=== PATIENT | female | born 1955 | race Caucasian/White ===

== ENCOUNTER 2021-11-10 07:19 | Day surgery (SDC) | payer MEDICARE ==
[~2021-11-10 07:19] MED LIST: LACTATED RINGERS 1,000 ML IV SCH; LIDOCAINE 1% (10MG/ML) FOR IV START INTRADERMA PRN; ONDANSETRON 4 MG/2 ML VIAL IVP PRN
[2021-11-10 07:48] LABS: Glucose,Whole Blood 106 mg/dL (70-110)
[2021-11-10 07:49] VITALS: RESP 16; TEMP 97.9
[2021-11-10] MEDS ORDERED: PROPOFOL 10 MG/ML 20 ML VIAL IV ONE (08:26)
--- NOTE | 2021-11-10 08:51 | P.PCN ---
Date of Procedure: 11/10/21 Procedure(s) Performed: BRIEF HISTORY: Patient is a 66-year-old pleasant male scheduled for an elective colonoscopy as a part of evaluation of Hemoccult-positive stool. PROCEDURE PERFORMED: Colonoscopy. With snare polypectomy PREOPERATIVE DIAGNOSIS: Hemoccult-positive stool IV sedation per Anesthesia. PROCEDURE: After informed consent was obtained, the patient, was brought into the endoscopy unit. IV sedation was administered by Anesthesia under continuous monitoring. Digital rectal examination was normal. Initially the Olympus CF-160 flexible video colonoscope was then inserted in the rectum, gradually advanced into the cecum without any difficulty. Careful examination was performed as the scope was gradually being withdrawn. Ileocecal valve and the appendiceal orifice were visualized and appeared normal. Prep was poor and several areas of the colon. In the base of the cecum by the appendiceal orifice there was a 5 limited polyp that was removed by snare polypectomy. Rest of the mucosa of the cecum, ascending colon, appeared normal. In the hepatic flexure there was a 7 mm polyp removed by snare polypectomy. Rest of the transverse colon, descending colon, sigmoid colon, and rectum appeared normal. Retroflexion was performed in the rectum and no lesions were seen. The patient tolerated the procedure well. IMPRESSION: 5 mm cecal polyp status post polypectomy 7 mm hepatic flexure polyp status post polypectomy RECOMMENDATIONS: Findings of this examination were discussed with the patient is a family. She was advised to follow with the biopsy results. If the biopsy is adenoma she can have a repeat colonoscopy in 5 years.
[2021-11-10 09:33] VITALS: BP 152/68; PULSE 78
== END 2021-11-10 09:31 | disposition home or self-care (01) ==
LOC: ORWHC2ENDO 07:19
PROVIDERS: ATTEND Internal Medicine Gastroenterology
DX: D12.3 Benign neoplasm of transverse colon (principal); J44.9 Chronic obstructive pulmonary disease, unspecified; G89.29 Other chronic pain
CPT/HCPCS: 45385; 88305; 88342; 88341; J2704

== ENCOUNTER → 2022-01-12 | Outpatient (CLI) | payer MEDICARE, OTHER ==
--- NOTE | 2022-01-12 14:38 | US ---
EXAMINATION TYPE: US thyroid st tissue head/neck DATE OF EXAM: 01/12/2022 COMPARISON: NONE CLINICAL HISTORY: E04.1 THYROID NODULE. Hypothyroid GLAND SIZE: Right Lobe: 5.3 x 1.1 x 1.9 cm Overall Parenchyma: homogenous Left Lobe: 5.5 x 1.5 x 1.8 cm Overall Parenchyma: homogeneous Isthmus Thickness: 0.3 cm NODULES RIGHT: # of nodules measured on right: multiple - largest measured 1. 0.5 x 0.5 x 0.3cm, mid , mixed cystic and solid, hypoechoic nodule, which is wider than tall, wit h smooth margins, with echogenic foci. TR-4. Prior size: [employer]ING [employer] here LEFT: # of nodules measured on left: 1 1. 1.5 X 1.3 x 1.3 cm, mid , solid or almost completely solid, isoechoic nodule, which is taller th an wide, with smooth margins, without echogenic foci. TR-3 Prior size: MANUFA[employer]URING [employer] here ISTHMUS: # of nodules measured in the isthmus: 0 Bilateral neck scanned, no evidence of lymphadenopathy. IMPRESSION: Bilateral thyroid nodules with largest on the left measuring up to 1.5 cm. Follow-up thyroid ultrasou nd in one year is recommended.
--- NOTE | 2022-01-13 16:00 | BD ---
EXAMINATION TYPE: Axial Bone Density DATE OF EXAM: 01/12/2022 COMPARISON: NONE CLINICAL HISTORY: 66 years year old Female. ICD-10 CODE: Z13.820 SCREENING OSTEOPOROSIS Height: 64.7 IN Weight: 99 LBS FRAX RISK QUESTIONS: History of Fracture in Adulthood: C5, C6,C7 AGE 23 Current Tobacco Use: YES RISK FACTORS HISTORY OF: Spine Fracture: C5, C6, C7 When: AGE 23 Active: MODERATE Postmenopausal woman: AGE 51 MEDICATIONS: Additional Medications: MULTI VIT EXAM MEASUREMENTS: Bone mineral densitometry was performed using the TEAM INTERVAL System. Bone mineral density as measured about the Lumbar spine is: ----- L1-L4(G/cm2): 0.876 T Score Values are as follows: ----- L1: -2.5 ----- L2: -2.4 ----- L3: -2.4 ----- L4: -2.9 ----- L1-L4: -2.5 Bone mineral density BASELINE Bone mineral density about the R hip (g/cm2): 0.716 Bone mineral density about the L hip (g/cm2): 0.717 T Score values are as follows: -----R Neck: -2.3 -----L Neck: -2.3 -----R Total: -3.3 -----L Total: -3.6 Bone mineral density BASELINE FRAX%s: The graph provided illustrates a 17.2 chance for a major osteoporotic fx and a 5.8 chance for the hips probability for fx in 10 years time. IMPRESSION: Osteoporosis (T Score less than -2.5). There is increased fracture risk and therapy is usually indicated based on age. Re-Screen 1-2 years. NOTE: T-SCORE=SD OF THE YOUNG ADULT MEAN.
--- NOTE | 2022-01-13 16:34 | MM ---
Reason for Exam: Screening (asymptomatic). Patient History: Menarche at age 18. First Full-Term at age 21. Postmenopausal. MG pre op needle loc LT - 2 on the Left side. Mother had breast cancer at or over age 50. Risk Values: Aiyana 5 year model risk: 3.4%. NCI Lifetime model risk: 12.5%. Tissue Density: The breast tissue is extremely dense which could obscure a lesion on mammography. Findings: Analyzed By CAD. Benign Calcifications within the left breast No suspicious groups of microcalcifications, spiculated or lobular masses, architectural distortion or other secondary signs of malignancy are mammographically apparent. Overall Assessment: Benign, BI-RAD 2 Management: Screening Mammogram of both breasts in 1 year. A negative mammogram report should not preclude additional follow up of suspicious palpable abnormalities. Patient should continue monthly self breast exam. A clinical breast exam by your physician is recommended on an annual basis and results should be correlated with mammographic findings. Electronically signed and approved by: Fer Christianson D.O. Radiologis
--- NOTE | 2022-01-13 22:11 | CT ---
EXAMINATION TYPE: CT chest wo con DATE OF EXAM: 01/12/2022 COMPARISON: None HISTORY: 66-year-old female J44.9, Pulmonary nodule, possible COPD. Pt current smoker, for 35 years. C/O SOB. TECHNIQUE: Contiguous axial scanning of the chest without IV contrast. Coronal and sagittal reconstru ctions performed. CT DLP: 119.9 mGycm Automated exposure control for dose reduction was used. FINDINGS: The heart is normal size with trace to small pericardial effusion measuring 6 mm thick. Mild atherosclerotic arch calcifications with conventional arch vessel branching anatomy. No thoracic lymphadenopathy by CT size criteria. There is moderate centrilobular emphysema. Some strandy scarring or atelectasis in the lower lungs. -There are approximately three 4 mm pulmonary nodules right upper lobe, axial image 6, 7, and 8. -A couple 3 mm subpleural pulmonary nodules lateral left upper lobe, axial image 16 and 17. No consolidation or pleural effusion. Central airways are clear. No consolidation or pleural effusion. Visualized upper abdomen is limited due to paucity of intra-abdominal fat and lack of contrast. No ob vious abnormality is seen. Bones: No osseous destructive process. Osteopenia. IMPRESSION: 1. COPD WITH MODERATE EMPHYSEMA. 2. A FEW SCATTERED TINY 4 MM AND SMALLER PULMONARY NODULES. THESE ARE NONSPECIFIC. FOLLOW-UP CT IN 12 MONTHS TO REASSESS.
== END | disposition home or self-care (01) ==
LOC: RADBDWWP 12:35
PROVIDERS: ATTEND Student in an Organized Health Care Education/Training Program
DX: Z12.31 Encounter for screening mammogram for malignant neoplasm of breast (principal); E04.1 Nontoxic single thyroid nodule; J44.9 Chronic obstructive pulmonary disease, unspecified; R91.1 Solitary pulmonary nodule; Z13.820 Encounter for screening for osteoporosis; E03.9 Hypothyroidism, unspecified; Z78.0 Asymptomatic menopausal state; Z80.3 Family history of malignant neoplasm of breast; Z87.891 Personal history of nicotine dependence
CPT/HCPCS: 71250; 76536; 77067; 77080

== ENCOUNTER 2022-03-09 18:55 | Emergency (ER) | payer MEDICARE, OTHER ==
[2022-03-09 19:30] VITALS: RESP 18
[2022-03-09] MEDS ORDERED: SODIUM CHLORIDE 0.9% 500 ML 500 ML IV STA (19:31)
[2022-03-09 20:02] LABS: Basophils % (A) 0 %; Eosinophils % (A) 1 %; HCT 41.1 % (34.0-46.0); Lymphocytes # (A) 0.8 k/uL (1.0-4.8); Lymphocytes % (A) 9 %; MCH 32.1 pg (25.0-35.0); MCHC 34.1 g/dL (31.0-37.0); MCV 94.1 fL (80.0-100.0); Mean Platelet Volume 8.3; Monocytes # (A) 0.5 k/uL (0-1.0); Monocytes % (A) 6 %; Neutrophils # (A) 7.9 k/uL (1.3-7.7); Neutrophils % (A) 84 %; Platelet Count 385 k/uL (150-450); RBC 4.36 m/uL (3.80-5.40); RDW 12.7 % (11.5-15.5); WBC 9.4 k/uL (3.8-10.6)
[2022-03-09 20:08] LABS: ALT 20 U/L (4-34); AST 28 U/L (14-36); African American GFR (CKD) >90 (>60 ml/min/1.73 sqM); Albumin 4.2 g/dL (3.5-5.0); Alkaline Phosphatase 85 U/L (38-126); Anion Gap 7 mmol/L; Blood Urea Nitrogen 13 mg/dL (7-17); Calcium 9.1 mg/dL (8.4-10.2); Carbon Dioxide 27 mmol/L (22-30); Chloride 104 mmol/L (98-107); Glucose 140 mg/dL (74-99); Magnesium 1.9 mg/dL (1.6-2.3); Non-African American GFR(CKD) >90 (>60 ml/min/1.73 sqM); Sodium 138 mmol/L (137-145); Total Bilirubin 0.2 mg/dL (0.2-1.3); Total Protein 6.6 g/dL (6.3-8.2)
--- NOTE | 2022-03-09 20:08 | XR ---
EXAMINATION TYPE: XR chest 2V DATE OF EXAM: 03/09/2022 COMPARISON: Chest CT January 12, 2022 HISTORY: Dysrhythmia. TECHNIQUE: Frontal and lateral views of the chest are obtained. FINDINGS: Mild underlying emphysematous changes are present. There is no focal air space opacity, pl eural effusion, or pneumothorax seen. The cardiac silhouette size is stable and within normal limits . The osseous structures are demineralized. Overlying EKG leads are noted. IMPRESSION: Mild emphysematous change without acute pulmonary process.
[2022-03-09 20:10] LABS: INR 0.9 (<1.2); Partial Thromboplastin Time 23.2 sec (22.0-30.0); Prothrombin Time 10.1 sec (9.0-12.0)
--- NOTE | 2022-03-09 20:30 | ED ---
General Adult HPI - General Chief complaint: Arrhythmia/Palpitations Stated complaint: tachycardia Time Seen by Provider: 03/09/22 19:00 Source: patient, RN notes reviewed, old records reviewed Mode of arrival: ambulatory Limitations: no limitations - History of Present Illness Initial comments: This a 66-year-old female presents emergency department stating that she has been having palpitations on and off all day today. Patient states there's been no chest pain is been no shortness of breath worse than her normal COPD. Patient states there's been no fever chills or cough per patient denies any headache patient denies lightheadedness or dizziness. Patient states she just feels her heart race. Patient denies any swelling in her legs or calf t enderness. Patient states currently lying in bed she has no symptoms. - Related Data Home Medications Medication Instructions Recorded Confirmed Hydrocodone/Acetaminophen 1 tab PO QID 11/09/21 03/09/22 [Hydrocodone/Acetaminophen 10-325] Ibuprofen [Motrin] 600 mg PO Q8HR PRN 11/09/21 03/09/22 tiZANidine [Zanaflex] 4 mg PO TID PRN 11/09/21 03/09/22 Sertraline HCl [Zoloft] 50 mg PO DAILY 03/09/22 03/09/22 hydrOXYzine HCL [Atarax] 25 mg PO TID PRN 03/09/22 03/09/22 predniSONE See Taper PO DIRECTED 03/09/22 03/09/22 Allergies Allergy/AdvReac Type Severity Reaction Status Date / Time shellfish derived [Shrimp] Allergy Anaphylaxis Verified 03/09/22 20:45 Review of Systems ROS Statement: Those systems with pertinent positive or pertinent negative responses have been documented in the HPI. ROS Other: All systems not noted in ROS Statement are negative. Past Medical History Past Medical History: COPD Additional Past Medical History / Comment(s): Fx 5,6,7 cervical spine, chronic pain, heat stroke 2011, arthritis in neck . blood in stools with last check up. mild ringing in ears. History of Any Multi-Drug Resistant Organisms: None Reported Past Surgical History: Section Additional Past Surgical History / Comment(s): c section x4 Past Anesthesia/Blood Transfusion Reactions: No Reported Reaction Past Psychological History: No Psychological Hx Reported Smoking Status: Current every day smoker - Past Family History Mother Additional Family Medical History / Comment(s): gallbladder removed, pacemaker Father Additional Family Medical History / Comment(s): alzheimer General Exam - General Exam Comments Initial Comments: GENERAL: Patient is well-developed and well-nourished. Patient is nontoxic and well- hydrated and is in no acute distress. ENT: Neck is soft and supple. No significant lymphadenopathy is noted. Oropharynx is clear. Moist mucous membranes. Neck has full range of motion without eliciting any pain. EYES: The sclera were anicteric and conjunctiva were pink and moist. Extraocular movements were intact and pupils were equal round and reactive to light. Eyelids were unremarkable. PULMONARY: Unlabored respirations. Good breath sounds bilaterally. No audible rales rhonchi or wheezing was noted. CARDIOVASCULAR: There is a regular rate and rhythm without any murmurs gallops or rubs. ABDOMEN: Soft and nontender with normal bowel sounds. SKIN: Skin is clear with no lesions or rashes and otherwise unremarkable. NEUROLOGIC: Patient is alert and oriented x3. Cranial nerves II through XII are grossly intact. Motor and sensory are also intact. Normal speech, volume and content. Symmetrical smile. MUSCULOSKELETAL: Normal extremities with adequate strength and full range of motion. No lower extremity swelling or edema. No calf tenderness. LYMPHATICS: No significant lymphadenopathy is noted PSYCHIATRIC: Normal psychiatric evaluation. 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 Patient is slight ST segment depression in leads II, III, and F aVF. Chest x-ray was interpreted by me. Chest x-ray shows no acute abnormality to shows signs of COPD. Patient refused to stay and wanted to help take care of her dogs patient states she'll return if there is any more palpitations chest pain or difficulty breathing. Patient states that she will call her doctor and get a heart monitor. Patient states she's never had chest pain or difficulty breathing relative to these palpitations. - Lab Data Result diagrams: 03/09/22 19:34 03/09/22 19:34 Lab Results 03/09/22 03/09/22 03/09/22 Range/Units 19:34 19:34 19:34 WBC 9.4 (3.8-10.6) k/uL RBC 4.36 (3.80-5.40) m/uL Hgb 14.0 (11.4-16.0) gm/dL Hct 41.1 (34.0-46.0) % MCV 94.1 (80.0-100.0) fL MCH 32.1 (25.0-35.0) pg MCHC 34.1 (31.0-37.0) g/dL RDW 12.7 (11.5-15.5) % Plt Count 385 (150-450) k/uL MPV 8.3 Neutrophils % 84 % Lymphocytes % 9 % Monocytes % 6 % Eosinophils % 1 % Basophils % 0 % Neutrophils # 7.9 H (1.3-7.7) k/uL Lymphocytes # 0.8 L (1.0-4.8) k/uL Monocytes # 0.5 (0-1.0) k/uL Eosinophils # 0.0 (0-0.7) k/uL Basophils # 0.0 (0-0.2) k/uL PT 10.1 (9.0-12.0) sec INR 0.9 (<1.2) APTT 23.2 (22.0-30.0) sec Sodium 138 (137-145) mmol/L Potassium 4.0 (3.5-5.1) mmol/L Chloride 104 (98-107) mmol/L Carbon Dioxide 27 (22-30) mmol/L Anion Gap 7 mmol/L BUN 13 (7-17) mg/dL Creatinine 0.44 L (0.52-1.04) mg/dL Est GFR (CKD-EPI)AfAm >90 (>60 ml/min/1.73 sqM) Est GFR (CKD-EPI)NonAf >90 (>60 ml/min/1.73 sqM) Glucose 140 H (74-99) mg/dL Calcium 9.1 (8.4-10.2) mg/dL Magnesium 1.9 (1.6-2.3) mg/dL Total Bilirubin 0.2 (0.2-1.3) mg/dL AST 28 (14-36) U/L ALT 20 (4-34) U/L Alkaline Phosphatase 85 (38-126) U/L Troponin I (0.000-0.034) ng/mL Total Protein 6.6 (6.3-8.2) g/dL Albumin 4.2 (3.5-5.0) g/dL TSH 0.221 L (0.465-4.680) mIU/L Urine Opiates Screen (NotDetected) Ur Oxycodone Screen (NotDetected) Urine Methadone Screen (NotDetected) Ur Propoxyphene Screen (NotDetected) Ur Barbiturates Screen (NotDetected) U Tricyclic Antidepress (NotDetected) Ur Phencyclidine Scrn (NotDetected) Ur Amphetamines Screen (NotDetected) U Methamphetamines Scrn (NotDetected) U Benzodiazepines Scrn (NotDetected) Urine Cocaine Screen (NotDetected) U Marijuana (THC) Screen (NotDetected) 03/09/22 03/09/22 Range/Units 19:34 20:46 WBC (3.8-10.6) k/uL RBC (3.80-5.40) m/uL Hgb (11.4-16.0) gm/dL Hct (34.0-46.0) % MCV (80.0-100.0) fL MCH (25.0-35.0) pg MCHC (31.0-37.0) g/dL RDW (11.5-15.5) % Plt Count (150-450) k/uL MPV Neutrophils % % Lymphocytes % % Monocytes % % Eosinophils % % Basophils % % Neutrophils # (1.3-7.7) k/uL Lymphocytes # (1.0-4.8) k/uL Monocytes # (0-1.0) k/uL Eosinophils # (0-0.7) k/uL Basophils # (0-0.2) k/uL PT (9.0-12.0) sec INR (<1.2) APTT (22.0-30.0) sec Sodium (137-145) mmol/L Potassium (3.5-5.1) mmol/L Chloride (98-107) mmol/L Carbon Dioxide (22-30) mmol/L Anion Gap mmol/L BUN (7-17) mg/dL Creatinine (0.52-1.04) mg/dL Est GFR (CKD-EPI)AfAm (>60 ml/min/1.73 sqM) Est GFR (CKD-EPI)NonAf (>60 ml/min/1.73 sqM) Glucose (74-99) mg/dL Calcium (8.4-10.2) mg/dL Magnesium (1.6-2.3) mg/dL Total Bilirubin (0.2-1.3) mg/dL AST (14-36) U/L ALT (4-34) U/L Alkaline Phosphatase (38-126) U/L Troponin I <0.012 (0.000-0.034) ng/mL Total Protein (6.3-8.2) g/dL Albumin (3.5-5.0) g/dL TSH (0.465-4.680) mIU/L Urine Opiates Screen Detected H (NotDetected) Ur Oxycodone Screen Not Detected (NotDetected) Urine Methadone Screen Not Detected (NotDetected) Ur Propoxyphene Screen Not Detected (NotDetected) Ur Barbiturates Screen Not Detected (NotDetected) U Tricyclic Antidepress Not Detected (NotDetected) Ur Phencyclidine Scrn Not Detected (NotDetected) Ur Amphetamines Screen Not Detected (NotDetected) U Methamphetamines Scrn Not Detected (NotDetected) U Benzodiazepines Scrn Not Detected (NotDetected) Urine Cocaine Screen Not Detected (NotDetected) U Marijuana (THC) Screen Not Detected (NotDetected) Disposition Clinical Impression: Palpitations Disposition: HOME SELF-CARE Instructions (If sedation given, give patient instructions): Heart Palpitations (ED) Is patient prescribed a controlled substance at d/c from ED?: No Referrals: Jose C Benítez [Primary Care Provider] - 1-2 days Time of Disposition: 21:41
[2022-03-09 21:24] LABS: Amphetamine Screen,Urine Not Detected (NotDetected); Barbiturate Screen,Urine Not Detected (NotDetected); Benzodiazepines Screen,Urine Not Detected (NotDetected); Cocaine Screen,Urine Not Detected (NotDetected); Methadone Screen, Urine Not Detected (NotDetected); Opiate Screen,Urine Detected (NotDetected); Oxycodone Screen, Urine Not Detected (NotDetected); Phencyclidine Screen,Urine Not Detected (NotDetected); Tricyclic Antidepressant,Urine Not Detected (NotDetected); Urn Cannabinoid Scrn Not Detected (NotDetected)
[2022-03-09 21:58] VITALS: BP 126/69; PULSE 79; TEMP 98.2
== END 2022-03-09 21:58 | disposition home or self-care (01) ==
LOC: EC 18:55
DX: R00.2 Palpitations (principal); J44.9 Chronic obstructive pulmonary disease, unspecified; F17.200 Nicotine dependence, unspecified, uncomplicated; Z91.013 Allergy to seafood
CPT/HCPCS: 36415; 71046; 80053; 80306; 83735; 84443; 84484; 85025; 85610; 85730; 93005; 99285

== ENCOUNTER → 2022-08-06 | Outpatient (CLI) | payer MEDICARE, OTHER ==
--- NOTE | 2022-08-08 10:21 | MR ---
EXAMINATION TYPE: MR brain wo/w con IAC DATE OF EXAM: 08/06/2022 10:25 PM CLINICAL INDICATION:Female, 66 years old with history of H90.A31; Hearing loss both sides, high pitch noise in both ears COMPARISON: None TECHNIQUE: Multi planar, multi sequence imaging was performed through the brain including: T1, T2, In version recovery, susceptibility weighted imaging and gradient echo imaging and Diffusion weighted im aging. The patient was then given intravenous contrast and multi planar, T1 fat-saturation images wer e obtained. Special sequences through the Internal auditory canals were performed. IV Contrast: 4.5 cc Gadavist FINDINGS: High T1 signal intrinsic signal along the falx measuring 5 mm below falx lipoma. The galvin-white junctions, ventricular system, basal cisterns appear unremarkable. Diffusion-weighted imaging shows no evidence of restricted diffusion to suggest acute/subacute infarct. Intracranial art erial flow voids are maintained. Midline structures show no abnormality. The susceptibility weighted images do not reveal any evidence for micro-hemorrhage. After administration of gadolinium, no abnorm al enhancement is seen. The bone marrow signal is within normal limits. Paranasal sinuses and mastoid air cells: No significant paranasal sinus disease. Visualized orbits: Orbital contents are intact. The internal auditory canal sequences demonstrate no significant irregularity. The 7th cranial nerve s, 8 cranial nerves, and cerebellar pontine angles appear unremarkable. After the administration vicenta olinium, no abnormal enhancement is seen within the internal auditory canals. Vascular loop: Left Type I: lying only in the CPA, but not entering the internal auditory canal (IAC) IMPRESSION: 1. No evidence of intracranial mass, acute/subacute infarct, or abnormal enhancement. 2. No evidence of internal auditory canal abnormality finding to correlate with patient's symptoms. 3. Left Type I Vascular loop.
== END | disposition home or self-care (01) ==
LOC: RADMRIMAIN 21:30
DX: H90.A31 Mixed conductive and sensorineural hearing loss, unilateral, right ear with restricted hearing on the contralateral side (principal)
CPT/HCPCS: 70553; A9585

== ENCOUNTER 2023-05-31 20:08 | Emergency (ER) | payer MEDICARE, OTHER ==
[2023-05-31 20:31] VITALS: BP 158/67; PULSE 96; RESP 18; TEMP 98.8
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
[2023-05-31] MEDS: AMOXIC-POT CLAV 875MG STARTER PACK 2 TAB BTL PO STA (21:43)
== END 2023-05-31 21:47 | disposition home or self-care (01) ==
LOC: EC 20:08
DX: H60.91 Unspecified otitis externa, right ear (principal); J44.9 Chronic obstructive pulmonary disease, unspecified; F17.200 Nicotine dependence, unspecified, uncomplicated; G89.29 Other chronic pain; F12.90 Cannabis use, unspecified, uncomplicated; Z79.52 Long term (current) use of systemic steroids; Z91.013 Allergy to seafood
CPT/HCPCS: 99282

== ENCOUNTER 2023-11-06 21:35 | Emergency (ER) | payer MEDICARE, OTHER ==
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
== END 2023-11-07 02:22 | disposition home or self-care (01) ==
LOC: EC 21:35
DX: L03.113 Cellulitis of right upper limb (principal)
CPT/HCPCS: 99283